=== PATIENT | male | born 1995 | race Caucasian/White ===

== ENCOUNTER 2019-05-04 18:59 | Emergency (ER) | payer BC, OTHER ==
[~2019-05-04] VITALS: Ht 177.8 cm; Wt 63.5 kg
[2019-05-04] MEDS ORDERED: ADDERALL 20 MG20 MG PO (19:07)
[2019-05-04] MEDS ORDERED: SERTRALINE HCL100 MG PO (19:07)
[2019-05-04 20:58] VITALS: BP 125/82
== END 2019-05-04 21:00 | disposition home or self-care (01) ==
LOC: M.ERS 18:59
DX: S00.531A Contusion of lip, initial encounter (principal); Z88.1 Allergy status to other antibiotic agents; Z88.2 Allergy status to sulfonamides; Y08.89XA Assault by other specified means, initial encounter; Y93.89 Activity, other specified; Y92.89 Other specified places as the place of occurrence of the external cause; Y99.8 Other external cause status